=== PATIENT | female | born 1980 | race Caucasian/White ===

== ENCOUNTER 2017-01-21 05:37 | Inpatient (IN) | payer OTHER ==
[2017-01-21] MEDS ORDERED: Witch Hazel PAD* JAR TOPICAL PRN (07:21)
[2017-01-21] MEDS ORDERED: Dibucaine 1% 28.35 GM TUBE PR PRN (07:21)
[2017-01-21] MEDS ORDERED: Acetaminophen TAB* 325 MG PO PRN (07:21)
[2017-01-21] MEDS ORDERED: oxyCODONE/Acetamin 5/325 MG* TAB PO PRN (07:21)
[2017-01-21] MEDS ORDERED: Ammonia Inhalant* 1 EA AMP ONE (08:37)
[2017-01-21] MEDS: Ibuprofen TAB* 600 MG PO PRN ×3 (09:16→21:23)
[2017-01-21] MEDS: Docusate CAP* 100 MG PO SCH ×3 (09:16→21:23)
--- NOTE | 2017-01-21 19:22 | PTEDU ---
Patient Name: CINTHIA MORALES CINTHIA MORALES selected video: BBOB: Nurturing Your Gorgeous \T\Growing Baby by to kit cespedes on 01/21/2017 at 7:22:08 PM from [id number]
[2017-01-22] MEDS: Ibuprofen TAB* 600 MG PO PRN ×3 (04:03→18:39)
[2017-01-22 07:25] LABS: Hematocrit 37 % (35-47); Hemoglobin 12.2 g/dl (12.0-16.0); Mean Corpuscular HGB Conc 33 g/dl (31-36); Mean Corpuscular Hemoglobin 29 pg (27-31); Mean Corpuscular Volume 89 fL (80-97); Mean Platelet Volume 12 um3 (7.4-10.4); Red Blood Count 4.19 10^6/ul (4.0-5.4); Red Cell Distribution Width 12 % (10.5-15); White Blood Count 11.1 10^3/ul (3.5-10.8)
[2017-01-22] MEDS ORDERED: Ferrous Gluconate TAB* 324 MG TAB PO SCH (09:00)
[2017-01-22] MEDS: Docusate CAP* 100 MG PO SCH ×3 (09:24→20:15)
[2017-01-23] MEDS: Ibuprofen TAB* 600 MG PO PRN (00:08)
[2017-01-23 07:51] VITALS: BP 98/63
[2017-01-23] MEDS: Docusate CAP* 100 MG PO SCH (07:52)
== END 2017-01-23 10:57 | disposition home or self-care (01) | DRG 775 ==
LOC: MCHOBOUT 05:37 → MCHOB 06:18
PROVIDERS: ADMIT Nurse Practitioner; ATTEND Nurse Practitioner
PROC: 10E0XZZ Delivery of Products of Conception, External Approach (ICD-10-PCS; principal; 2017-01-21)
PROC: 0HQ9XZZ Repair Perineum Skin, External Approach (ICD-10-PCS; 2017-01-21)
DX: O70.0 First degree perineal laceration during delivery (principal); O09.523 Supervision of elderly multigravida, third trimester; Z3A.39 39 weeks gestation of pregnancy; Z37.0 Single live birth
CPT/HCPCS: 36415; 85025; A9270-GY